=== PATIENT | male | born 1990 | race Caucasian/White ===

== ENCOUNTER 2019-01-21 16:49 | Emergency (ER) | payer OTHER ==
[~2019-01-21] VITALS: Ht 175.3 cm; Wt 92.0 kg
[~2019-01-21 16:49] MED LIST: ACYC400T2 PO; IBUP-1542 PO
[2019-01-21 17:03] VITALS: Ht 175.3 cm; Wt 92.0 kg
--- NOTE | 2019-01-21 17:49 | ERD ---
ER Documentation Chief Complaint Chief Complaint I have jock itch x1mth HPI 28-year-old male with no reported past medical history presents complaint of "jock itch" over the past month. Has noticed some painful, itchy lesions on head of penis. Reports regularly having unprotected sex over the past several months with multiple partners. He denies any discharge from head of penis. Denies any urinary symptoms such as burning or painful urination. He otherwise denies fevers, chills, shortness of breath, dyspnea, other lesions or rashes, urinary symptoms. States he has tried tea tree oral, I will set of vinegar and Lotrimin without much improvement in his symptoms. ROS All systems reviewed and are negative except as per history of present illness. Medications Home Meds Active Scripts Ibuprofen* (Motrin*) 600 Mg Tab, 600 MG PO Q6, #30 TAB Prov:JEUDINE,HEBERHO PA-C 01/21/19 Acyclovir* (Acyclovir*) 400 Mg Tablet, 400 MG PO TID for 10 Days, TAB Prov:TRISTIAN ROLAND PA-C 01/21/19 Allergies Allergies: Coded Allergies: iodine (Verified Allergy, Intermediate, 01/21/19) PMhx/Soc Medical and Surgical Hx: pt denies Medical Hx, pt denies Surgical Hx Hx Alcohol Use: Yes (social) Hx Substance Use: Yes (marijuana) Hx Tobacco Use: No Smoking Status: Never smoker FmHx Family History: No diabetes, No coronary disease, No other Physical Exam Vitals Vital Signs Date Temp Pulse Resp B/P (MAP) Pulse Ox O2 O2 Flow FiO2 Time Delivery Rate 01/21/19 98.1 73 18 140/86 100 Room Air 18:22 (104) 01/21/19 97.9 56 18 130/74 99 17:03 (92) Physical Exam I have reviewed the triage vital signs. Const: Well nourished, well developed, appears stated age Eyes: PERRL, no conjunctival injection HENT: NCAT, Neck supple without meningismus CV: RRR, Warm, well-perfused extremities RESP: CTAB, Unlabored respiratory effort GI: soft, non-tender, non-distended, no masses MSK: No gross deformities appreciated Skin: Warm, dry. Head of penis with what appears to be a ruptured vesicles, ulcerations and varying degrees of healing, tender to palpation, no inguinal adenopathy, no tenderness to bilateral testes Neuro: grossly non focal Psych: Appropriate mood and affect. Results 24 hrs Laboratory Tests Test 01/21/19 17:53 Urine Color YELLOW Urine Clarity CLEAR Urine pH 7.0 Urine Specific [place] 1.018 Urine Ketones NEGATIVE mg/dL Urine Nitrite NEGATIVE mg/dL Urine Bilirubin NEGATIVE mg/dL Urine Urobilinogen NEGATIVE mg/dL Urine Leukocyte Esterase NEGATIVE Arlene/ul Urine Hemoglobin NEGATIVE mg/dL Urine Glucose NEGATIVE mg/dL Urine Total Protein NEGATIVE mg/dl Procedures/MDM 28-year-old male who presents with penile lesions consistent with herpes genitalis infection. 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 Will treat with course of acyclovir. GC and Chlamydia testing, HIV testing, confirmatory HSV testing sent. Patient elected to inform all sexual partners regarding his likely diagnosis. Any acute process warranting further emergent care work-up. Patient does not exhibit any signs or symptoms of gonorrhea chlamydia, denies any discharge so we will send confirmatory testing. Patient advised to follow- up results in 48 hours in case he needs additional treatment. Patient agrees with plan and all questions answered. DISPOSITION PLAN: We discussed follow up with the patient's primary care doctor within 24 to 48 hours. Patient counseled regarding my diagnostic impression and care plan. Prior to discharge all questions answered. Pt agrees with treatment plan and understands strict return precautions. Precautionary instructions provided including instructions to return to the ER if not improving or for any worsening or changing symptoms or concerns. Disclaimer: Inadvertent spelling and grammatical errors are likely due to EHR/dictation software use and do not reflect on the overall quality of patient care. Also, please note that the electronic time recorded on this note does not necessarily reflect the actual time of the patient encounter. Departure Condition: Stable Patient Instructions: Herpes: Treatment with Medication , Herpes Genitalis, Hsv: Type Ii Referrals: COMMUNITY CLINICS YOU HAVE RECEIVED A MEDICAL SCREENING EXAM AND THE RESULTS INDICATE THAT YOU DO NOT HAVE A CONDITION THAT REQUIRES URGENT TREATMENT IN THE EMERGENCY DEPARTMENT. FURTHER EVALUATION AND TREATMENT OF YOUR CONDITION CAN WAIT UNTIL YOU ARE SEEN IN YOUR DOCTORS OFFICE WITHIN THE NEXT 1-2 DAYS. IT IS YOUR RESPONSIBILITY TO MAKE AN APPOINTMENT FOR FOLOW-UP CARE. IF YOU HAVE A PRIMARY DOCTOR --you should call your primary doctor and schedule an appointment IF YOU DO NOT HAVE A PRIMARY DOCTOR YOU CAN CALL OUR PHYSICIAN REFERRAL HOTLINE AT IF YOU CAN NOT AFFORD TO SEE A PHYSICIAN YOU CAN CHOSE FROM THE FOLLOWING [facility] CL[facility]ICS [facility] [address] [facility] [address] [facility] [address] [facility]. [facility] [address] [facility]. [facility] [phone] [facility] [facility]. [facility] [address] Additional Instructions: Call your primary care doctor TOMORROW for an appointment during the next 2-3 days.See the doctor sooner or return here if your condition worsens before your appointment time. Call back for the results of your blood testing in 48 hours. If any of the obtained testing are positive you may require additional treatment. Take medication as prescribed to completion. You should inform all sexual partners about your diagnosis and advised him to seek elevation and treatment. TRISTIAN ROLAND PA-C Jan 21, 2019 17:49
[2019-01-21 18:22] VITALS: BP 140/86; PULSE 73; RESP 18
== END 2019-01-21 18:30 | disposition home or self-care (01) ==
LOC: FTE 16:49
DX: B00.9 Herpesviral infection, unspecified (principal)
CPT/HCPCS: 36415; 81003; 86692; 87536; 87591; 99283